=== PATIENT | female | born 1980 | race Hispanic/Latino ===

== ENCOUNTER 2017-04-20 15:33 | Emergency (ER) | payer OTHER, BC ==
[2017-04-20 15:48] VITALS: BMI 21.5
[2017-04-20 15:52] VITALS: RESP 18; TEMP 98.4; O2SAT 98
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
[2017-04-20 17:49] VITALS: BP 128/85; PULSE 83
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
== END 2017-04-20 17:48 | disposition home or self-care (01) ==
LOC: ED 15:33
DX: S16.1XXA Strain of muscle, fascia and tendon at neck level, initial encounter (principal); V49.9XXA Car occupant (driver) (passenger) injured in unspecified traffic accident, initial encounter; R51 Headache
CPT/HCPCS: 70450; 72050; 96372; 99284; J1885